=== PATIENT | female | born 1995 | race Caucasian/White ===

== ENCOUNTER 2023-07-09 11:42 | Inpatient (IN) ==
[2023-07-09] MEDS ORDERED: OXYTOCIN 30 UNITS/NSS 30 UNITS/500 ML BAG IV PRN ×2 (12:08→15:46)
[2023-07-09] MEDS ORDERED: LIDOCAINE 1% LOCAL 20 ML VIAL INFIL PRN (12:08)
[2023-07-09] MEDS: LACTATED RINGER'S 1,000 ML IV PRN ×2 (12:14→15:05)
[2023-07-09] MEDS ORDERED: fentaNYL citrate PF 100 MCG/2 ML VIAL ONE (12:24)
[2023-07-09] MEDS ORDERED: ePHEDrine sulfate 50 MG/ML AMP ONE (12:24)
[2023-07-09] MEDS ORDERED: SODIUM CHLORIDE 0.9% PF INJ 10 ML VIAL ONE (12:24)
[2023-07-09] MEDS ORDERED: LIDOCAINE 2%/EPINEPHRINE 1:200,000 20 ML PF ONE (12:24)
[2023-07-09] MEDS ORDERED: fentANYL 2 MCG/ML BUPIVacaine 0.125%-NSS 100ML BAG ONE (12:24)
[2023-07-09] MEDS ORDERED: BUPIVACAINE 0.25% PF 30 ML VIAL ONE (12:24)
[2023-07-09] MEDS ORDERED: HYDROCORTISONE SOD 100 MG in SYRINGE 0 ML IV ONE (12:30)
--- NOTE | 2023-07-09 12:41 | History & Physical Report ---
Date of Service July 09, 2023 Assessment & Plan (1) Active labor at term: Plan: 27-year-old -0-0-1 at 41 weeks and 6 days of gestation presenting today with contractions and active labor, Vital signs stable afebrile, heart rate reassuring, GBS negative, History of ulcerative colitis with endoscopy and IV steroid during this , on prednisone, [facility] recommends stress dose of steroid with 100 mg of hydrocortisone followed by 50 mg every 6 hours for total of 4 doses making it 200 mg total dose, Patient desires epidural for pain, Plan to admit, labs, IV steroids as above, epidural for pain and anticipate . (2) Ulcerative colitis: (3) Iron deficiency: History of Present Illness Primary Care Provider: Carolynn Ding MD Patient is a 27-year-old 001 at 41 weeks and 6 days of gestation who has been feeling contractions since last night, get more closer and regular this morning. She feels them every 2 to 3 minutes and very painful. She denies leakage of fluid or vaginal bleeding. She reports good movements. Her has been complicated by, 1. Ulcerative colitis, she has been on prednisone, the dose has been tapered from 50 mg to 2.5 mg daily, admitted for IV steroids and endoscopy in second trimester, also on mesalamine and infliximab 2. Close interval, 3. Anemia GBS negative Allergies Allergy/AdvReac Type Severity Reaction Status Date / Time No Known Allergies Allergy Verified 03/06/23 12:00 Home Medications Medication Instructions Recorded Confirmed Type acetaminophen 500 mg capsule See Rx Instructions PO Q6H PRN Pain 02/14/21 03/06/23 History vitamins-iron fumarate 27 1 tab PO DAILY 02/14/21 03/06/23 History mg iron-folic acid 0.8 mg tablet pyridoxine (vitamin B6) 25 mg 25 mg PO DAILY 12/18/22 03/06/23 History tablet infliximab-axxq [Avsola] IV 02/27/23 03/06/23 History prednisone 10 mg tablet 10 mg PO .as directed 02/27/23 03/06/23 History Patient History Medical History Anxiety no meds at present Diarrhea reason for up coming colonoscopy Abdominal pain reason for up coming colonoscopy Rectal bleeding reason for up coming colonoscopy Anemia mild, just related Migraine Shortness of breath related Fast heart beat thinks related > 116 yesterday at OB appt. History of COVID-19 Apr 2022 > not hospitalized Currently 22 weeks and 1 day at present External hemorrhoid, bleeding H/o Lyme disease chronic fatigue resulting Depression no meds at present Surgical History [place] teeth extracted Family History Grandmother (Paternal) Alzheimer disease Aunt Schizophrenia Depression Father Deep vein thrombosis Pulmonary embolism Grandmother (Maternal) Schizophrenia Uncle Schizophrenia Mother Bipolar disorder Anxiety Denies family history of Ovarian cancer Prostate cancer Myocardial infarction Breast cancer Colorectal cancer Social History Smoking Status: Never smoker Second Hand Exposure: No; Do You Dip or Chew Tobacco: No; Hx Alcohol Use: No Hx Substance Use: No Preferred Language: Lao Communication Ability: Effective Visual Impairment: No Limitations Hearing Ability: Normal Prn Occupational Therapist Required: No Beliefs That Will Affect Care: None marital status: marital status details: Blu Ramey (24) [phone] Current Living Situation: Spouse Current Living Situation Comment: daughter 1.5 years old current occupational status: employed current occupation: grad student Feels Safe at Home: Yes Childhood Exposure to Second-Hand Smoke: No Dental Care, Regularly: Yes Assistive Devices: Contacts and Glasses OB History Full-term at [facility] in [place], 6 pound 14 ounce [employer] History No history of STDs, no history of chlamydia, gonorrhea, herpes Review of Systems as per Subjective / HPI Physical Exam Constitutional: WD/WN, vitals as above well developed, well nourished and + acute distress (With contraction) Genitourinary: normal external appearance OB Exam Abdomen: + vertex Manual OB Exam: + cervical dilation 5 cm, + cervical effacement 80% and + station -1 OB Exam Monitor Tracing: + external uterine monitor used and + category I Results & Data Vital Signs (Past 12 Hours) Vital Signs Temp Pulse Resp BP 07/09/23 11:56 36.7 C 94 H 22 118/75
[2023-07-09 12:56] LABS: Hematocrit (blood only) 37.9 % (37.0-47.0); Hemoglobin 13.3 g/dl (12.0-16.0); Mean Corpuscular Hemoglobin 30.9 pg (25.0-34.0); Mean Corpuscular Hgb Conc 35.1 g/dL (32.0-36.0); Mean Corpuscular Volume 87.9 fL (80.0-100.0); Mean Platelet Volume 12.5 fL (9.4-12.4); Platelet Count 177 K/uL (130-400); RDW Coefficient of Variation 13.2 % (11.5-14.5); RDW Standard Deviation 42.6 fL (36.4-46.3); Red Blood Count 4.31 M/uL (4.20-5.40)
[2023-07-09 13:28] LABS: Alanine Aminotransferase 10 U/L (7-52); Albumin Globulin Ratio 1.2 (0.9-2); Albumin Level 3.6 gm/dl (3.4-5.0); Alkaline Phosphatase 74 U/L (34-104); Anion Gap 8 (3-11); Aspartate Aminotransferase 15 U/L (13-39); BUN Creatinine Ratio 10.3 (10-20); Bilirubin,Total 0.9 mg/dl (0.2-1.0); Blood Urea Nitrogen 6 mg/dl (6-23); Carbon Dioxide 23 mmol/L (21-32); Chloride 102 mmol/L (98-107); Est GFR (African American) 148.5 ml/min; Est GFR (Non-African American) 128.1 ml/min; Globulin 2.9 gm/dl (2.5-4.0); Glucose 92 mg/dl (70-99(Fasting)); Potassium 3.8 mmol/L (3.5-5.1); Sodium 133 mmol/L (136-145); Total Protein 6.5 gm/dl (6.0-8.3)
--- NOTE | 2023-07-09 13:31 | Anesthesiology Consultation ---
Date of Service July 09, 2023 Assessment & Plan Chart Review Chart Review: Acceptable Risk for Labor Epidural Consults Requested none History Allergies Allergy/AdvReac Type Severity Reaction Status Date / Time No Known Allergies Allergy Verified 03/06/23 12:00 Medications Home Medications Medication Instructions Recorded Confirmed Last Taken acetaminophen 500 mg capsule See Rx Instructions PO Q6H PRN Pain 02/14/21 03/06/23 Unknown vitamins-iron fumarate 27 1 tab PO DAILY 02/14/21 03/06/23 02/19/23 mg iron-folic acid 0.8 mg tablet pyridoxine (vitamin B6) 25 mg 25 mg PO DAILY 12/18/22 03/06/23 02/21/23 tablet infliximab-axxq [Avsola] IV 02/27/23 03/06/23 Unknown prednisone 10 mg tablet 10 mg PO .as directed 02/27/23 03/06/23 Unknown Active Medications Generic Name Dose Route Start Last Admin Trade Name Freq PRN Reason Stop Dose Admin Lactated Ringer's 1,000 mls @ 150 mls/hr 07/09/23 12:08 07/09/23 12:44 Lr IV 07/11/23 12:07 150 mls/hr .[id number] PRN Infusion L&D Protocol Protocol Past Medical History Medical History Anxiety no meds at present Diarrhea reason for up coming colonoscopy Abdominal pain reason for up coming colonoscopy Rectal bleeding reason for up coming colonoscopy Anemia mild, just related Migraine Shortness of breath related Fast heart beat thinks related > 116 yesterday at OB appt. History of COVID-19 Apr 2022 > not hospitalized Currently 22 weeks and 1 day at present External hemorrhoid, bleeding H/o Lyme disease chronic fatigue resulting Depression no meds at present Past Family History Family History Grandmother (Paternal) Alzheimer disease Aunt Schizophrenia Depression Father Deep vein thrombosis Pulmonary embolism Grandmother (Maternal) Schizophrenia Uncle Schizophrenia Mother Bipolar disorder Anxiety Denies family history of Ovarian cancer Prostate cancer Myocardial infarction Breast cancer Colorectal cancer Past Surgical History Surgical History [place] teeth extracted Social History Smoking Status: Never smoker Do You Dip or Chew Tobacco: No Hx Alcohol Use: No Hx Substance Use: No substance use type: does not use Physical Exam Vital Signs Last Vital Signs Temp 36.7 C 07/09/23 11:56 Pulse 106 H 07/09/23 13:28 Resp 22 07/09/23 11:56 BP 111/57 L 07/09/23 13:28 Pulse Ox 97 07/09/23 13:28 Testing Laboratory Results 07/09/23 12:31 07/09/23 12:31
[2023-07-09] MEDS ORDERED: ePHEDrine sulfate 50 MG/ML AMP IV PRN (13:35)
[2023-07-09] MEDS ORDERED: BUPIVACAINE 0.25% PF 30 ML VIAL EPI STA (13:35)
[2023-07-09] MEDS ORDERED: NALBUPHINE HCL 5 MG in SYRINGE 0 ML IV PRN (13:35)
[2023-07-09] MEDS ORDERED: NALOXONE HCL 0.4 MG/1 ML VIAL/CARP IV PRN (13:35)
[2023-07-09] MEDS ORDERED: ROPIVACAINE 0.5% PF 5 MG/ML 20 ML VIAL EPI PRN (13:35)
[2023-07-09] MEDS ORDERED: SODIUM CHLORIDE 0.9% PF INJ 10 ML VIAL EPI STA (13:35)
[2023-07-09] MEDS ORDERED: NALOXONE HCL 1 MG in SODIUM CHLORIDE 0.9% 1,000 ML IV PRN (13:35)
[2023-07-09] MEDS ORDERED: BUPIVACAINE 0.25% PF 30 ML VIAL EPI PRN (13:35)
[2023-07-09] MEDS ORDERED: LIDOCAINE 2%/EPINEPHRINE 1:200,000 20 ML PF EPI STA (13:35)
[2023-07-09] MEDS ORDERED: LIDOCAINE 2% MPF LOCAL 5 ML VIAL EPI PRN (13:35)
[2023-07-09] MEDS ORDERED: fentANYL 2 MCG/ML BUPIVacaine 0.125%-NSS 100ML BAG EPI PRN (13:35)
[2023-07-09] MEDS ORDERED: fentaNYL citrate PF 100 MCG/2 ML VIAL EPI PRN (13:35)
[2023-07-09] MEDS ORDERED: diphenhydrAMINE 50 MG/ML VIAL IV PRN (13:35)
[2023-07-09] MEDS ORDERED: SODIUM CHLORIDE 0.9% PF INJ 10 ML VIAL EPI PRN (13:35)
[2023-07-09] MEDS ORDERED: fentaNYL citrate PF 100 MCG/2 ML VIAL EPI STA (13:35)
[2023-07-09] MEDS ORDERED: oxyCODONE/ACETAMINOPHEN 5mg/325mg TAB PO PRN (15:46)
[2023-07-09] MEDS ORDERED: IBUPROFEN 600 MG TAB PO PRN (15:46)
[2023-07-09] MEDS ORDERED: HYDROCORTISONE ACETATE 25 MG SUPP PR PRN (15:46)
[2023-07-09] MEDS ORDERED: bisacodyL 10 MG SUPP PR PRN (15:46)
[2023-07-09] MEDS ORDERED: DIPHTHERIA/TETANUS/PERTUSSIS Vaccine (Tdap, Age 7+yrs) 0.5mL SYR/VL IM ONE (15:46)
[2023-07-09] MEDS ORDERED: METHYLERGONOVINE MALEATE 0.2 MG/ML AMP IM ONE (15:46)
[2023-07-09] MEDS ORDERED: MEASLES, MUMPS & RUBELLA VIRUS VACCINE (MMR) VIAL SQ ONE (15:46)
[2023-07-09] MEDS ORDERED: BENZOCAINE 20% SPRY 85 APPLN/85 GM CAN EXT PRN (15:46)
--- NOTE | 2023-07-09 15:49 | Delivery Summary ---
Vaginal Delivery Summary Date of Service July 09, 2023 Vaginal Delivery Summary Patient was found to be fully dilated and desires to push. She pushed for about 15 min and delivered the head and then shoulders with minimal traction. The baby was handed off to the mother. The cord was clampedx2 and cut at 2 minute delay per mothers request. Bbay was moving and crying. The vagina and perineum were checked and found to have 1st degree perineal laceration. The vaginal mucosa was repaired with 3/0 vicryl and skin on subcuticular fashion. The placenta was delivered spontaneously as intact and complete at. The uterus was explored and found to be empty. EBL was 300 ml. The fundus was firm The baby was a viable male , Apgars 8/9, the weight is pending The mother and the baby tolerated the procedure well. No complications happened and I was present during whole procedure.
[2023-07-09] MEDS: ACETAMINOPHEN 325 MG TAB PO PRN ×2 (16:01→23:24)
[2023-07-09] MEDS ORDERED: HYDROCORTISONE SOD 50 MG in SYRINGE 0 ML IV SCH (19:00)
--- NOTE | 2023-07-09 19:38 | Anesthesiology Progress Note ---
Date of Service July 09, 2023 Anesthesia Post Procedure Vital Signs Vital Signs: Temp Pulse Pulse Resp BP BP Pulse Ox 07/09/23 18:00 36.6 C 110 H 18 110/71 96 07/09/23 17:39 110 H 114/75 07/09/23 17:24 94 H 113/66 07/09/23 17:09 85 118/69 07/09/23 16:54 84 113/67 07/09/23 16:39 90 117/65 07/09/23 16:24 88 128/66 07/09/23 16:09 92 H 121/60 07/09/23 15:54 108 H 123/65 07/09/23 15:39 99 H 128/64 07/09/23 15:38 100 H 125/67 07/09/23 15:30 100 H 124/65 07/09/23 15:28 101 H 124/59 L 07/09/23 15:18 109 H 142/77 H 07/09/23 15:14 134 H 94 07/09/23 15:13 110 H 99 07/09/23 15:08 102 H 141/76 H 99 07/09/23 15:03 115 H 99 07/09/23 14:59 96 H 135/75 07/09/23 14:58 110 H 99 07/09/23 14:53 101 H 99 07/09/23 14:49 92 H 118/70 07/09/23 14:48 101 H 99 07/09/23 14:43 101 H 99 07/09/23 14:38 116 H 115/68 97 07/09/23 14:33 100 H 97 07/09/23 14:28 98 07/09/23 14:28 106 H 07/09/23 14:28 97 H 115/65 07/09/23 14:23 104 H 97 07/09/23 14:18 100 H 118/66 98 07/09/23 14:13 101 H 98 07/09/23 14:08 101 H 128/82 98 07/09/23 14:03 109 H 99 07/09/23 13:58 100 07/09/23 13:58 95 H 07/09/23 13:58 90 112/59 L 07/09/23 13:56 90 140/67 07/09/23 13:53 97 H 98 07/09/23 13:48 100 H 110/60 99 07/09/23 13:43 101 H 97 07/09/23 13:42 36.7 C 22 07/09/23 13:38 101 H 111/59 L 97 07/09/23 13:33 95 H 98 07/09/23 13:28 97 07/09/23 13:28 106 H 07/09/23 13:28 105 H 111/57 L 07/09/23 13:26 96 H 118/55 L 07/09/23 13:24 79 133/60 07/09/23 13:23 87 97 07/09/23 13:22 100 H 102/66 07/09/23 13:20 94 H 108/59 L 07/09/23 13:18 115 H 115/65 98 07/09/23 13:16 114 H 124/70 07/09/23 13:13 157 H 98 07/09/23 13:08 126 H 98 07/09/23 13:03 115 H 99 07/09/23 12:58 114 H 98 07/09/23 11:56 36.7 C 94 H 22 118/75 O2 Del Method 07/09/23 18:00 Room Air 07/09/23 17:39 07/09/23 17:24 07/09/23 17:09 07/09/23 16:54 07/09/23 16:39 07/09/23 16:24 07/09/23 16:09 07/09/23 15:54 07/09/23 15:39 07/09/23 15:38 07/09/23 15:30 07/09/23 15:28 07/09/23 15:18 07/09/23 15:14 07/09/23 15:13 07/09/23 15:08 07/09/23 15:03 07/09/23 14:59 07/09/23 14:58 07/09/23 14:53 07/09/23 14:49 07/09/23 14:48 07/09/23 14:43 07/09/23 14:38 07/09/23 14:33 07/09/23 14:28 07/09/23 14:28 07/09/23 14:28 07/09/23 14:23 07/09/23 14:18 07/09/23 14:13 07/09/23 14:08 07/09/23 14:03 07/09/23 13:58 07/09/23 13:58 07/09/23 13:58 07/09/23 13:56 07/09/23 13:53 07/09/23 13:48 07/09/23 13:43 07/09/23 13:42 07/09/23 13:38 07/09/23 13:33 07/09/23 13:28 07/09/23 13:28 07/09/23 13:28 07/09/23 13:26 07/09/23 13:24 07/09/23 13:23 07/09/23 13:22 07/09/23 13:20 07/09/23 13:18 07/09/23 13:16 07/09/23 13:13 07/09/23 13:08 07/09/23 13:03 07/09/23 12:58 07/09/23 11:56 Pain Intensity Left Abdomen: Pain Intensity: 5 Transfer of Care Handoff Completed per policy Notes Mental Status: alert / awake / arousable and participated in evaluation Patient Amnestic to Procedure: Yes Nausea / Vomiting: adequately controlled Pain: adequately controlled Airway Patency, RR, SpO2: stable & adequate BP & HR: stable & adequate Hydration State: stable & adequate Anesthetic Complications: no major complications apparent
[2023-07-09] MEDS: DOCUSATE SODIUM 100 MG CAP PO SCH (20:45)
--- OUTSIDE RECORDS SUMMARY | 2023-07-09 22:16 | External Medical Summary | Summary of Care ---
Author Name Unknown Organization [facility] Address [address] [place] [address] Phone [phone] Care Team Providers Care Gear Cutting Machine Set Up Operator Name Role Phone Carolynn Ding MD Primary Care Provider [phone] Reason for Visit * Reason Comments Return Visit Non Stress Test Encounter Details Date Type Department Care Team (Late st Contact Info) Description 07/06/2023 1:15 PM EST Office Visit Gynecology/Obstetric s Oneyda Ferguosn [address] [facility] [place] [address] Chato Chao MD [address] [place] [address] Marty Non Stress Tests [facility]anti [address] [facility] [address] Supervision of high-risk , unspecified trimester*; Cystic fibrosis carrier; Antepartum anemia complicating ; Gastrointestinal symptoms related to in third trimester; Other ulcerative colitis without complication (HCC); headache in third trimester Allergies No known active allergiesdocumented as of this encounter (statuses as of 07/09/2023) Medications Medication Sig Dispensed Refills Start Date End Date Status 19 29-1 MG Oral Tablet Chewable Take by mouth. 0 Active Vitamin C 100 MG Oral Tablet 5 Tablets in the morning. 0 Active Ferrous Bisglycinate Chelate 28 MG Oral Capsule Take by mouth. 0 Active predniSONE 5 MG Oral Tablet (Deltasone) Take 1 Tablet by mouth in the morning. 30 Tablet 0 04/02/2023 Active Additional Information Patient not taking.Reported on 07/06/2023 Vitamin B-12 1000 MCG Oral Tablet (Cyanocobalamin) Take 1 Tablet by mouth in the morning. 0 Active Avsola 100 MG Intravenous Solution Reconstituted (inFLIXimab-axxq)I ndications:Other ulcerative colitis without complication (HCC) Administer 700 mg (10 mg/kg) intravenously every 8 weeks 7 Each 6 05/23/2023 Active Acetaminophen 325 MG Oral Tablet (Tylenol)Indicatio ns:Other ulcerative colitis without complication (HCC) Take 2 Tablets by mouth as needed (for mild to moderate reaction (infusion reaction protocol)). 2 Tablet 11 05/23/2023 Active diphenhydrAMINE HCl 50 MG/ML Injection Solution (Benadryl)Indicati ons:Other ulcerative colitis without complication (HCC) 25 mg IV push, may repeat x 1 dose, then 50 mg every 2 - 3 hours as needed for anaphylaxis 2 mL 05/23/2023 Active Sodium Chloride 0.9 % Intravenous SolutionIndication s:Other ulcerative colitis without complication (HCC) TO BE ADMINISTERED IN THE EVENT OF ANAPHYLACTIC REACTION 1000 mL 11 05/23/2023 Active dexAMETHasone Sodium Phosphate 4 MG/ML Injection Solution (Decadron)Indicati ons:Other ulcerative colitis without complication (HCC) Inject 8 mg intravenously as needed for Anaphylaxis (severe allergic reaction). 2 mL 05/23/2023 Active diphenhydrAMINE HCl 50 MG/ML Injection Solution (Benadryl)Indicati ons:Other ulcerative colitis without complication (HCC) Inject 25 mg intravenously as needed (Mild to moderate infusion reaction (infusion reaction protocol)). 1 mL 05/23/2023 Active EPINEPHrine (Anaphylaxis) 1 MG/ML Injection SolutionIndication s:Other ulcerative colitis without complication (HCC) Inject 0.3 mL into a large muscle as needed for Anaphylaxis (severe allergic reaction). May repeat every 15 min as needed per infusion reaction protocol 2 mL 11 05/23/2023 Active predniSONE 2.5 MG Oral Tablet (Deltasone) Take 1 Tablet by mouth in the morning. 14 Tablet 0 06/20/2023 Active predniSONE 2.5 MG Oral Tablet (Deltasone) Take 1 Tablet by mouth in the morning. 14 Tablet 0 07/04/2023 Active Mesalamine 1000 MG Rectal Suppository (Canasa) Administer 1 Suppository into the rectum at bedtime. 90 Suppository 3 07/04/2023 Active documented as of this encounter (statuses as of 07/09/2023) Active Problems Problem Noted Date Diagnosed Date Headache in 02/28/2023 Overview: Reports history of migraines which have been more frequent this Does not currently follow Neurology Last Assessment & Plan: Considerations: The occurrence of migraine is modulated by fluctuations in estrogen levels. Most women (60 to 70 percent) with a history of migraine report improvement over the course of , approximately 5 percent describe worsening, and the remainder report no change Indications for neuroimaging and lumbar puncture are similar to those in non adults. Reviewed relief measures for headaches in include adequate hydration, small frequent meals, and Tylenol with caffeinated beverage as needed. Advise limiting Tylenol to no greater than 3000 mg per day. Recommendations: Recommend evaluation for Preeclampsia if greater than 20 weeks gestation. Recommend follow up with primary care provider or Neurology consult if headache symptoms worsen No contraindications for taking Fioricet as needed for severe headaches. Discussed that supplementation with magnesium 400 mg twice daily, co-q10 100 mg three times daily, and riboflavin (vitamin B2) 400 mg once daily may decrease the frequency of migraine headaches. These can be obtained over the counter at any pharmacy and are not contraindicated in . Avoid or monitor effects of possible headache triggers: o Chocolate o Cheese o Deli meats o Artificial sweeteners Iron deficiency anemia 02/24/2023 , GI problems 02/22/2023 Overview: Ulcerative colitis on endoscopy at 22 wks, [place] [facility] [place] Last Assessment & Plan: Sachi asked about recent shiga toxin positivity. In the absence of gastroenteritis or HUS, the presence of the toxin should not be an independent risk factor for complications. She currently has no symptoms related to E. coli or Shigella infection. Ulcerative colitis 02/22/2023 Overview: Diagnosed 02/19/23 02/22/23 admitted to [facility] [place]. Receives intermittent PO prednisone for flares. Currently following with [facility]; next appointment 03/06/23 Attend follow-up with gastroenterology. Continue existing medications in . High dose steroids are safe and effective, and agree with taper thereafter If steroids are continued throughout or repeated in 3rd trimester, patient may be a candidate for peripartum stress dose steroids Glucose challenge test should be deferred until steroid course is completed -> if patient is to be on usp steroids, consider finger stick monitoring at home for 1-2 week interval for GDM assessment The medication adalimumab (Humira) is likely safe to the fetus in . Exposure of the fetus to biologic agents may lead to an increased risk of immunosuppression that may persist in the for 1-3 months after delivery. Notify construction plant operator in antepartum setting that patient is taking infliximab -> defer to pediatrics but consider delaying vaccination of the the during first 3-6 months of life if exposed to biologic agent after 27 weeks gestation. For this similar reason, would recommend patient receive TDap vaccine now, prior to discharge, in anticipation of startign infliximab, if deemed clinically appropriate by primary team. Flexible sigmoidoscopy, if indicated, is safe in . Anemia: Hgb 11.6 on 01/15/23 -> now 9-9.7 -> Pt Ferritin level 23, unable to tolerate PO iron, would recommened IV iron prior to discharge or arranged as an outpatient. Ensure no active heavy bleeding prior to discharge If possible, surgery should be avoided during ; medical management should be optimized in women with worsening symptoms. Pt should follow with MFM for all future ultrasounds -> MFM anatomy in 1-2 weeks and serial growth scans thereafter. Recommend delivery for patients who have active perianal disease, rectal involvement from their IBD at the time of their delivery. For all other women with IBD (including those with colostomy or ileostomy), the route of delivery should be based on the obstetrical necessity and indication. Avoid midline episiotomy. Have patient see GI/PCP at 34-36 weeks to assess disease status/complaints Last Assessment & Plan: I reviewed the ultrasound. The overall estimated weight is consistent with the 17th percentile for the gestational age and the abdominal circumference is consistent with the 29th percentile for the gestational age. The anatomy that was visualized appears unremarkable and the amniotic fluid volume is normal at 12 cm. At this point, there is no clinical indication for return. Antepartum anemia complicating 023 Overview: hgb 11.8 at 16 weeks Supervision of high-risk , unspecified trimester 12/06/2022 Cystic fibrosis carrier 12/06/2022 Overview: Pt and FOB both CF carriers. Daughter does not have cystic fibrosis 02/28/23 [facility] genetic counseling consult offered; declined at this time. Last Assessment & Plan: FOB and pt carriers of CF. Declines genetic counseling. Patient aware of the 25% risk of having an affected child. Discussed testing after . Estimated Date of Delivery Comme nts Yes 06/26/2023 Based on Ultraso und documented as of this encounter (statuses as of 07/09/2023) Resolved Problems Problem Noted Date Diagnosed Date Resolved Date Bloody diarrhea 02/22/2023 02/24/2023 documented as of this encounter (statuses as of 07/09/2023) Immunizations Name Administration Dates Next Due SEASONAL INFLUENZA, PF, 6 M & Above, IM , (FLULAVAL or FLUZONE) 05/28/2023 TDAP (age 10 and older)(Boostrix) 02/25/2023 documented as of this encounter Social History Tobacco Use Types Packs/Day Years Used Date Smoking Tobacco: Never Smokeless Tobacco: Never Alcohol Use Standard Drinks/Week Comments Not Currently 0 (1 standard drink = 0.6 oz pur e alcohol) Hunger Vital Sign Answer Date Recorded Within the past 12 months, y ou worried that your food would run out before you got the money to buy more. Never true 12/05/19 23 Within the past 12 months, t he food you bought just didn't last and you didn't have money to get more. Never true 12/04/2022 Princeton Depression Scale Answer Date Recorded Princeton Depression Scale Total 6 05/09/2023 The thought of harming myself has occurred to me . Never 05/09/2023 Estimated Date of Delivery Comme nts Yes 06/26/2023 Based on Ultraso und Sex and Gender Information Value Date Recorded Sex Assigned at Female 12/04/2022 2:23 PM EDT Gender Identity Female 12/04/2022 2:23 PM EDT Sexual Orientation Straight 12/04/2022 2: 23 PM EDT Job Start Date Occupation Industry Not on file Not on file Not on file documented as of this encounter Last Filed Vital Signs Vital Sign Reading Time Taken Comments Blood Pressure - - Pulse - - Temperature - - Respiratory Rate - - Oxygen Saturation - - Inhaled Oxygen Concentration - - Weight 78 kg (172 lb) 07/06/2023 1:06 PM EST Height 160 cm (5' 3") 07/06/2023 1:06 PM EST Body Mass Index 30.47 07/06/2023 1:06 PM EST documented in this encounter Functional Status Functional Status Response Date of Assess ment Are you deaf or do you have serious difficulty h earing? No 02/22/2023 Are you blind or do you have serious difficulty seeing, even when wearing glasses? No 02/22/2023 Do you have serious difficul ty walking or climbing stairs? (5 years old or older) No 02/22/2023 Do you have difficulty dress ing or bathing? (5 years old or older) No 02/22/2023 Because of a physical, menta l, or emotional condition, do you have difficulty doing errands alone such as visiting a doctor s office or shopping? (15 years old or older) No 02/23/20 Cognitive Status Response Date of Assessm ent Because of a physical, menta l, or emotional condition, do you have serious difficulty concentrating, remembering, or making decisions? (5 years old or older) No 02/22/2023 documented as of this encounter Progress Notes * Zhanna Jones LPN - 07/06/2023 1:11 PM EST 41w3d Pt here for NST, contractions started about 2:30am 07/06, have been about 25 mins apart. Pt denies any concerns. documented in this encounter Plan of Treatment Upcoming Encounters Date Type Department Care Team (Latest Contact Info) Description 08/28/2023 8:00 AM EST Hospital Encounter ENDO [facility], Endoscopy Room [facility] [address] [facility] [place] [phone] Sammie Magallanes MD [address] [place] [address] 08/28/2023 8:00 AM EST - 08/28/2023 8:30 AM EST Surgery ENDO [facility], Endoscopy Room [facility] [address] [place] [phone] Sammie Magallanes MD [address] [place] [address] COLONOSCOPY FLEXIBLE PROXIMAL DIAGNOSTIC Scheduled Procedures Name Priority Associated Diagnoses Date/Ti ct COLONOSCOPY FLEXIBLE PROXIMAL DIAGNOSTIC Ulcerative colitis (HCC) 08/28/2023 8:00 AM EST Health Maintenance Due Date Last Done Comments Pneumococcal Vaccine: Pediat rics (0 to 5 Years) and At-Risk Patients (6 to 64 Years) (1 - PCV) 2003 Depression Screening 2009 COVID-19 Vaccine (3 - Pfizer risk series) 01/12/2021 12/15/2020, 11/24/2020 Pap Smear 12/06/2025 12/06/2022 DTaP,Tdap,and Td Vaccines (7 - Td or Tdap) 02/25/2033 02/25/2023, 07/12/2021, 01/18/1999, Additional history exists Hepatitis B Completed 01/14/1998, 08/14, 1997 MENINGOCOCCAL (MENACTRA/MENVEO) Completed 3, 01/21/2009 GARDASIL-HPV IMMUNIZATION SERIES Completed 02/17/2014, 09/20/2013, 07/19/2013 Influenza Vaccine (FLU shot) Completed , 06/20/2021, 04/15/2017, Additional history exists documented as of this encounter Medical Devices Not on filedocumented as of this encounter Visit Diagnoses Diagnosis Supervision of high-risk , unspecified trimester- Primary Cystic fibrosis carrier Cystic fibrosis gene carrier Antepartum anemia complicating Anemia, antepartum Gastrointestinal symptoms related to in third trimester Other ulcerative colitis without complication (HCC) headache in third trimester Ulcerative colitis (HCC) Ulcerative colitis, unspecified documented in this encounter Advance Directives Latest Code Status on File Code Status Date Activated Date Inactivated Comments Full Code 02/22/2023 8:45 PM 02/25/2023 10:39 PM This order reflects the patients wishes and were consensually agreed upon. Question Answer Comments Discussion of Advance Directives occurred with: Patient Does the patient have a Living Will? Yes, not currently available Does the patient have Health Care Power of Assembler Bonding? Yes, not currently available Care Teams Gear Cutting Machine Set Up Operator Relationship Specialty Start Date End Date Carolynn Ding MD [address] [place] [address] [place] [id number] PCP - General Family Medicine 02/20/23 documented as of this encounter
--- NOTE | 2023-07-09 22:47 | Anesthesia Procedure Note ---
Date of Service July 09, 2023 Anesthesia Post Epidural Note Vital Signs Vital Signs: Temp Pulse Resp BP Pulse Ox O2 Del Method 36.5 C 89 16 110/71 96 Room Air 07/09/23 19:30 07/09/23 19:30 07/09/23 19:30 07/09/23 19:30 07/09/23 18:00 07/09/23 19:30 Pain Intensity Left Abdomen: Pain Intensity: 5 Notes Mental Status: alert / awake / arousable Nausea / Vomiting: adequately controlled Pain: adequately controlled Airway Patency, RR, SpO2: stable & adequate BP & HR: stable & adequate Hydration State: stable & adequate Neuraxial Anesthesia: was administered and sensory block is resolving Anesthetic Complications: no major complications apparent and Pt Satisfied with anesthetic care Epidural: Removed without complications and With tip intact
[2023-07-09] MEDS: HYDROCORTISONE SOD 50 MG in SYRINGE 0 ML IV SCH (23:54)
[2023-07-10] MEDS: HYDROCORTISONE SOD 50 MG in SYRINGE 0 ML IV SCH (06:37)
[2023-07-10 06:41] LABS: Hemoglobin 12.2 g/dl (12.0-16.0); Mean Corpuscular Hemoglobin 30.7 pg (25.0-34.0); Mean Corpuscular Hgb Conc 34.9 g/dL (32.0-36.0); Mean Corpuscular Volume 87.9 fL (80.0-100.0); Mean Platelet Volume 12.4 fL (9.4-12.4); Platelet Count 181 K/uL (130-400); RDW Coefficient of Variation 12.8 % (11.5-14.5); RDW Standard Deviation 41.5 fL (36.4-46.3); Red Blood Count 3.98 M/uL (4.20-5.40); White Blood Count 17.01 K/ul (4.8-10.8)
[2023-07-10] MEDS ORDERED: PRENATAL VITAMIN 1 TAB PO SCH (08:00)
[2023-07-10] MEDS ORDERED: FERROUS SULFATE 325 MG TAB PO SCH (08:00)
[2023-07-10] MEDS: DOCUSATE SODIUM 100 MG CAP PO SCH (09:22)
[2023-07-10] MEDS: ACETAMINOPHEN 325 MG TAB PO PRN (09:22)
--- NOTE | 2023-07-10 09:50 | Obstetrical Progress Note ---
Date of Service July 10, 2023 Assessment & Plan (1) Normal course: PPD #1 pt doing well no complaints wishes to be discharged home Results & Data Vital Signs (Past 12 Hours) Vital Signs Temp Pulse Resp BP O2 Del Method 07/10/23 03:45 36.6 C 71 16 92/51 L Room Air 07/09/23 23:10 36.6 C 87 16 Room Air
[2023-07-10] MEDS ORDERED: bisacodyL 5 MG TABEC PO SCH (20:00)
== END 2023-07-10 18:25 | disposition home or self-care (01) | DRG 806 ==
LOC: OPB 11:42 → 4S1 11:45 → 4E2 18:38